=== PATIENT | female | born 1985 | race Caucasian/White ===

== ENCOUNTER 2020-12-29 10:11 | Outpatient (CLI) | payer OTHER ==
[2020-12-29 10:29] VITALS: BP 117/68
--- NOTE | 2020-12-29 11:28 | PROVIDER PROGRESS NOTE ---
- HPI Chief Complaint: Fall Current : Current EDU 01/29/21 Gestation 35 Weeks and 4 Days 4 Para 2 Vital Signs Temperature 98.4 F 12/29/20 10:21 Heart Rate 100 12/29/20 10:21 Respiratory Rate 16 12/29/20 10:21 Blood Pressure 117/68 12/29/20 10:21 Temperature 98.4 F 12/29/20 10:27 Heart Rate 100 12/29/20 10:27 Respiratory Rate 16 12/29/20 10:27 Blood Pressure 117/68 12/29/20 10:27 O2 Saturation 100 12/29/20 10:27 - Exam General no acute distress Breathing nonlabored Abdomen: soft, nontender, gravid - Procedures OB Procedure Performed: NST Diagnosis/Indication for NST: Other (Fall) NST Procedure: NST Procedure Start Date 12/29/20 Start Time 10:23 Vibroacoustic Stimulation Used No Patient States Movement Yes Service Date of procedure: 12/29/20 Findings: base line 140 Positive accelerations. No decelerations, moderate variability No contractions, Reactive and reassuring. - Plan Plan: 35-year-old G4, P2 at 35 weeks 4 days presenting with fall. 1. Fall. Fall at approximately 9:15 AM. Positive movement. No vaginal bleeding. No abdominal trauma. External monitoring reactive and reassuring. No contractions noted. Plan for prolonged monitoring. \ Addendum: status post prolonged monitoring. Short remains reactive and reassuring. Stable for discharge with kick count precautions
== END 2020-12-29 11:30 | disposition home or self-care (01) ==
LOC: WFO 10:11 → FBP 10:13 → WFO 11:30
PROVIDERS: ATTEND Obstetrics & Gynecology
DX: Z34.83 Encounter for supervision of other normal pregnancy, third trimester (principal); Z3A.35 35 weeks gestation of pregnancy; Z91.81 History of falling
CPT/HCPCS: 59025; 99215

== ENCOUNTER 2021-01-01 07:00 | Outpatient (CLI) | payer OTHER | END 2021-01-01 23:59 | disposition home or self-care (01) | LOC: LAB 07:00 | PROVIDERS: ATTEND Obstetrics & Gynecology | DX: Z36.85 Encounter for antenatal screening for Streptococcus B (principal) | CPT/HCPCS: 87797 ==

== ENCOUNTER 2021-01-09 14:38 | Outpatient (CLI) | payer OTHER ==
--- NOTE | 2021-01-09 17:48 | Ultrasound Report ---
PROCEDURE: OB F/U or Repeat INDICATIONS: SUPERVISION OF ELDERLY MULTIGRAVIDA OUTSIDE/PRIOR DATING DATA: Last menstrual period (LMP): 04/24/2020. LMP-based estimated date of delivery (VANE): 01/29/2021. First dating scan (date and location): Outside, 06/18/2020. Estimated date of delivery (VANE) from first dating scan: 01/29/2021. The below data below was generated using the outside ultrasound VANE of 01/29/2021 TECHNIQUE: Real-time scanning was performed of the fetus, with image documentation and biometric measurements. COMPARISON: Correlation is made with scanned in outside ultrasound reports, the majority of which ar e knowledgeable. FINDINGS: General: A single live intrauterine gestation is present. Presentation: Vertex Placenta: Placental position is anterior, without previa. Amniotic fluid index: 12.6 cm, within normal limits for gestational age. heart rate: 167 beats per minute. Maternal cervical canal: Not well seen. biometrics: Biparietal diameter: 9.4 cm equals 38 weeks 3 days Head circumference: 34.6 cm equals 40 weeks 1 day Abdominal circumference: 34.7 cm equals 38 weeks 4 days Femur length: 7.2 cm equals 36 weeks 5 days Estimated gestational age from initial scan: 37 weeks 1 day Composite gestational age from present scan: 38 weeks 3 days Estimated weight and percentile: 3459 g, 85th percentile Measurement variability in biometric dating: +/- 10 days from 12-20 weeks gestation, +/- 2 weeks from 20-30 weeks gestation, +/- 3 weeks at 30 weeks gestation or more. Other: The right kidney demonstrates pelviectasis measuring 8 mm. The left renal pelvis i s within normal limits. IMPRESSION: Single live intrauterine . No significant discrepancy is found between the estimated gestational age based upon these images and the estimated gestational age based upon the given outside dating. The cervix is not well seen. Mild prominence of the right renal pelvis, 8 mm. Reviewed by: Chandana Griffin MD on 01/09/2021 4:46 PM [facility] Approved by: Chandana Griffin MD on 01/09/2021 4:46 PM [facility] Station ID: [id number]
[2021-01-11 18:16] LABS: HEPATITIS C ANTIBODY NON-REACTIVE (NON-REACTIVE)
== END 2021-01-09 14:39 | disposition home or self-care (01) ==
LOC: DI 14:38
PROVIDERS: ATTEND Obstetrics & Gynecology
DX: O09.523 Supervision of elderly multigravida, third trimester (principal); Z36.89 Encounter for other specified antenatal screening
CPT/HCPCS: 36415; 86787; 86803

== ENCOUNTER 2021-01-29 12:25 | Inpatient (IN) | payer OTHER ==
--- NOTE | 2021-01-29 13:18 | HISTORY & PHYSICAL EXAMINATION ---
Admit History - Visit Reason Visit Reason: Membranes rupture, Bloody show - : 4 Parity: 2 - Mother's Labs Mother's Blood Type: positive: O Mother's RH: positive: Negative GBS: positive: Group B Step Negative - Other Maternal History Other Maternal History: ID: Patient is a 36 yo at 40+0 wga who presents with likely SROM and bloody show. HPI: Patient was seen in clinic today and reports passage of a small amount of fluid per vagina. No contractions. She was nitrazine positive and had subjectively low fluid on BSUS. SVE was 2/50/-[address] Paul. She presents for evaluation in triage. Upon presentation, she has soaked one pad with with blood. She is in no pain. No contractions on monitor. 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 with second . Would like to catch her own baby, if possible. Rh negative but declined Rhogam as partner is known Rh negative. 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 PNC: LMP: 04/24/2020 VANE by LMP: 01/29/2021 Initial u/s: US performed 06/18/20, 8 weeks 0 days. FINAL VANE: 01/29/21 O Neg/Rubella immune Declined Rhogam d/t FOB Rh- (Patient is L&D RN/Peripartum support RN at [employer]) VZV: hx disease; no lab Genetic testing: CF negative; date uncertain FAS: anterior, 3VC EFW 91%ile, EIF, Had LL placenta, resolved in fu exam Glucola: 116 Influenza: 11/27/2020 COVID: Pfizer 09/21/2020 10/12/2020 Tdap: 12/24/2020 GBS: 01/01/2021 Negative HSV: denies self and partner Breast pump rx:01/01/21 MOD: anticipate PP contraception: Pap: self reports no hx abnormals; last 11/2019 in [place] Past Medical History: Anemia Past Surgical History: [place] teeth 2002 LL abdomen and R-upper back precancerous mole removal. 2013. 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 PE: VS 98.2 100 136/80 16 GEN: NAD HEAD: NCAT EYES: No scleral icterus or conjunctival injection CV: RR RESP: normal effort ABD: S&NT/ND, gravid PSYCH: appropriate affect NEURO: alert and oriented, normal gait and coordination EXT: WWP SVE 2/50/-2 per clinic exam EFM 145 mod stephan, no accels or decels VAS with appropriate response with 15x15 accels TOCO: Q3 min, mild A/P: Patient is a 36 yo at 40+0 wga who presents with likely SROM and bloody show. SROM: Unclear history of rupture also with blood show -Currently 40 weeks. Patient open to augmentation in setting of failure to progress in 2 hours. -Expectant management with possible pitocin augmentation -Bloody show, but tracing reassuring. Cont with close monitoring FWB: vertex, well grown, GBS negative, Cat I tracing -Continue with cEFM -No signs of distress in setting of bloody show. Consider change in mode of delivery with loss of reassuring tracing. PAIN: -Epidural as desired Nitrous oxide as desired Inpatient care Meds/Allgy - Allergies Allergies/Adverse Reactions: Allergies Allergy/AdvReac Type Severity Reaction Status Date / Time No Known Drug Allergies Allergy Verified 01/29/21 12:43 Physical - Abdominal Exam Vital Signs: Temp Pulse Resp BP Pulse Ox 98.2 F 100 16 136/80 H 01/29/21 12:36 01/29/21 12:36 01/29/21 12:36 01/29/21 12:36
[2021-01-29] MEDS ORDERED: miSOPROStoL 200 MCG TABLET PR ONE (13:37)
[2021-01-29] MEDS ORDERED: METHYLERGONOVINE 0.2 MG/ML VIAL IM PRN (13:37)
[2021-01-29] MEDS ORDERED: LABETALOL 20 MG/4 ML SYRINGE IVP PRN ×5 (13:37)
[2021-01-29] MEDS ORDERED: TRANEXAMIC ACID IN NACL 1,000 MG/100 ML BAG IV PRN (13:37)
[2021-01-29] MEDS ORDERED: SODIUM CHLORIDE FLUSH 0.9% 10 ML SYRINGE IVP PRN (13:37)
[2021-01-29] MEDS ORDERED: ACETAMINOPHEN 325 MG TABLET PO PRN (13:37)
[2021-01-29] MEDS ORDERED: NIFEdipine 10 MG CAPSULE PO PRN (13:37)
[2021-01-29] MEDS ORDERED: CARBOPROST TROMETHAMINE 250 MCG/ML AMP IM PRN (13:37)
[2021-01-29] MEDS ORDERED: hydrALAZINE INJ 20 MG/ML VIAL IVP PRN ×2 (13:37)
[2021-01-29] MEDS ORDERED: OXYTOCIN/SODIUM CHLORIDE 500 ML IV PRN (13:37)
[2021-01-29] MEDS ORDERED: miSOPROStoL 200 MCG TABLET BC ONE (13:37)
[2021-01-29] MEDS ORDERED: TERBUTALINE 1 MG/ML VIAL SUBQ PRN (13:37)
[2021-01-29] MEDS ORDERED: LIDOCAINE-MPF 1% 30 ML VIAL ID PRN (13:37)
[2021-01-29] MEDS ORDERED: OXYTOCIN 10 UNIT/ML VIAL IM PRN (13:37)
[2021-01-29] MEDS ORDERED: SODIUM CHLORIDE FLUSH 0.9% 10 ML SYRINGE IVP SCH (14:00)
[2021-01-29] MEDS: LACTATED RINGERS 1,000 ML IV SCH (14:25)
[2021-01-29 14:45] LABS: BASOPHILS # (AUTO) 0.1 10^3/uL (0.0-0.1); BASOPHILS % (AUTO) 0.5 %; EOSINOPHILS % (AUTO) 0.1 %; HCT - HEMATOCRIT 35.5 % (37.0-47.0); HGB - HEMOGLOBIN 11.7 g/dL (12.0-16.0); LYMPHOCYTES # (AUTO) 1.6 10^3/uL (1.5-3.5); MEAN CORPUSCULAR HEMOGLOBIN 30.2 pg (27.0-31.0); MEAN CORPUSCULAR VOLUME 91.7 fL (81.0-99.0); MEAN PLATELET VOLUME 10.8 fL (7.9-10.8); MONOCYTES # (AUTO) 0.7 10^3/uL (0.0-1.0); NEUTROPHILS # (AUTO) 12.3 10^3/uL (1.5-6.6); NEUTROPHILS % (AUTO) 82.4 %; PLT - PLATELET COUNT 194 10^3/uL (130-450); RED BLOOD COUNT 3.87 10^6/uL (4.20-5.40); RED CELL DISTRIBUTION WIDTH 12.9 % (12.0-15.0); WHITE BLOOD COUNT 14.9 x10^3/uL (4.8-10.8)
[2021-01-29 15:11] LABS: ALBUMIN 3.6 g/dL (3.2-5.5); ALBUMIN/GLOBULIN RATIO 1.1 (1.0-2.2); ALKALINE PHOSPHATASE 148 IU/L (42-121); ALT ALANINE AMINOTRANSFERASE < 10 IU/L (10-60); AST ASPARTATE AMINOTRANSFERASE 15 IU/L (10-42); BILIRUBIN,TOTAL 0.6 mg/dL (0.2-1.0); BUN - BLOOD UREA NITROGEN 7 mg/dL (6-20); CALCIUM 8.8 mg/dL (8.5-10.3); CARBON DIOXIDE - CO2 20 mmol/L (21-32); CHLORIDE 100 mmol/L (101-111); CREATININE 0.6 mg/dL (0.4-1.0); GFR - MDRD 114 (>89); GLUCOSE 80 mg/dL (70-100); POTASSIUM 3.7 mmol/L (3.5-5.0); SODIUM 132 mmol/L (135-145)
--- NOTE | 2021-01-29 16:25 | ANESTHESIA ---
Pre-Anesthesia VS, & Labs - Diagnosis term labor, IUP - Procedure epidural for Vital Signs: Temp Pulse Resp BP Pulse Ox 36.8 C 100 16 136/80 H 01/29/21 13:05 01/29/21 13:05 01/29/21 13:05 01/29/21 13:05 Height: 5 ft 7 in Weight (kg): 72.575 kg Body Mass Index: 25.0 BMI Classification: Overweight - NPO Last Fluid Intake: t/o day Last Food Intake: full lunch - Is Patient ?: Yes - Lab Results Current Lab Results: Laboratory Tests 01/29/21 14:47: Blood Type Recheck O NEGATIVE 01/29/21 14:36: Blood Type O NEGATIVE, Antibody Screen NEGATIVE, Crossmatch IS Only See Detail 01/29/21 14:30: Sodium 132 L, Potassium 3.7, Chloride 100 L, Carbon Dioxide 20 L , Anion Gap 12.0, BUN 7, Creatinine 0.6, Estimated GFR (MDRD) 114, Glucose 80, C alcium 8.8, Total Bilirubin 0.6, AST 15, ALT < 10 L, Alkaline Phosphatase 148 H, Total Protein 7.0, Albumin 3.6, Globulin 3.4, Albumin/Globulin Ratio 1.1 01/29/21 14:30: WBC 14.9 H, RBC 3.87 L, Hgb 11.7 L, Hct 35.5 L, MCV 91.7, MCH 30.2, MCHC 33.0, RDW 12.9, Plt Count 194, MPV 10.8, Neut # (Auto) 12.3 H, Lymph # (Auto) 1.6, [place] # (Auto) 0.7, Eos # (Auto) 0.0, Baso # (Auto) 0.1, Absolute Nucleated RBC 0.00, Nucleated RBC % 0.0 Lab results reviewed: Yes Fish Bones: 01/29/21 14:30 01/29/21 14:30 Home Medications and Allergies Active Medications Acetaminophen (Acetaminophen 325 Mg Tablet) 1,000 mg PO Q8HR PRN PRN Reason: Mild Pain Or Fever>38c(100.4f) Carboprost Tromethamine (Carboprost Tromethamine 250 Mcg/Ml Amp) 250 mcg IM ONCE PRN PRN Reason: Hemorrhage Stop: 01/29/21 18:00 Hydralazine HCl (Hydralazine Inj 20 Mg/Ml Vial) 5 - 20 mg IVP Q20M PRN; Protocol PRN Reason: SBP> or= 160 OR DBP> or= 110 Hydralazine HCl (Hydralazine Inj 20 Mg/Ml Vial) 10 mg IVP .ONCE PRN; Protocol PRN Reason: Step 9 of Labetalol protocol Stop: 02/03/21 13:39 Oxytocin/Sodium Chloride (Pitocin/Sodium Chloride) 500 mls @ 999 mls/hr IV PRN PRN; Protocol PRN Reason: POST- HEMORR PREVENTION Tranexamic Acid (Tranexamic 1,000 Mg/100ml-Nacl) 1,000 mg in 100 mls @ 600 mls/hr IV Q30M PRN PRN Reason: EBL >1200mL and within 3hr Lactated Ringer's (Lr) 1,000 mls @ 125 mls/hr IV .Q8H TE Last Admin: 01/29/21 14:25 Dose: 125 mls/hr Documented by: Labetalol HCl (Labetalol 20 Mg/4 Ml Syringe) 20 mg IVP ONCE PRN; Protocol PRN Reason: SBP> or= 160 OR DBP> or= 110 Stop: 01/29/21 18:00 Labetalol HCl (Labetalol 20 Mg/4 Ml Syringe) 20 - 80 mg IVP Q10M PRN; Protocol PRN Reason: SBP> or= 160 OR DBP> or= 110 Labetalol HCl (Labetalol 20 Mg/4 Ml Syringe) 20 - 40 mg IVP Q10M PRN; Protocol PRN Reason: SBP> or= 160 OR DBP> or= 110 Labetalol HCl (Labetalol 20 Mg/4 Ml Syringe) 20 mg IVP .ONCE PRN; Protocol PRN Reason: Step 9 of nifedipine protocol Stop: 02/03/21 13:39 Labetalol HCl (Labetalol 20 Mg/4 Ml Syringe) 40 mg IVP .ONCE PRN; Protocol PRN Reason: Step 9 of hydrALAZine protocol Stop: 02/03/21 13:39 Lidocaine HCl (Lidocaine-Mpf 1% 30 Ml Vial) 30 ml ID ONCE PRN PRN Reason: PERINEAL REPAIR Stop: 01/30/21 13:38 Methylergonovine Maleate (Methylergonovine 0.2 Mg/Ml Vial) 0.2 mg IM ONCE PRN PRN Reason: Hemorrhage Stop: 01/29/21 18:00 Nifedipine (Nifedipine 10 Mg Capsule) 10 - 20 mg PO Q20M PRN; Protocol PRN Reason: SBP> or= 160 OR DBP> or= 110 Oxytocin (Oxytocin 10 Unit/Ml Vial) 10 unit IM ONCE PRN PRN Reason: Step One if no IV access. Stop: 01/29/21 18:00 Sodium Chloride (Sodium Chloride Flush 0.9% 10 Ml Syringe) 10 ml IVP PRN PRN PRN Reason: NEEDED PER PROVIDER ORDERS Sodium Chloride (Sodium Chloride Flush 0.9% 10 Ml Syringe) 10 ml IVP Q8H TE Allergies/Adverse Reactions: Allergies Allergy/AdvReac Type Severity Reaction Status Date / Time No Known Drug Allergies Allergy Verified 01/29/21 12:43 Anes History & Medical History - Anesthetic History Anesthesia Complications: reports: No previous complications Family history of Anesthesia Complications: Denies Family history of Malignant Hyperthermia: Denies - Medical History Smoking Status: Never smoker - Surgical History Other Past Surgical History: wisdom teeth extraction - Obstetrical History : 4 Parity: 2 Exam General: Alert, Oriented x3, Cooperative Dental: WNL Mouth Openin Fingerbreadth Neck Mobility: Normal Mallampati classification: II Thyromental Distance: 4-6 cm Respiratory: No respiratory distress Cardiovascular: Regular rate Neurological: Normal speech Mental/Cognitive Status: Alert/Oriented X3, Normal for patient Cognitive Status: Within normal limits Plan Anesthesia Type: Epidural Consent for Procedure(s) Verified and Reviewed: Yes Code Status: Attempt Resuscitation ASA classification: 2-Mild systemic disease Is this case an emergency?: No
[2021-01-29] MEDS ORDERED: OXYTOCIN/SODIUM CHLORIDE 500 ML IV SCH (18:02)
--- NOTE | 2021-01-29 19:24 | PROVIDER PROGRESS NOTE ---
Subjective - Prog Note Date Prog Note Date: 01/29/21 Prog Note Time: 17:23 - Subjective Subjective: Patient is mignon but does not feel increase in intensity. No large gushes of fluid. Has been checked 2x in the last 5 hours. No change in SVE from /-2. Cat I tracing Ok with starting pitocin. Objective - Vital Signs/Intake & Output Vital Signs: Vital Signs x48h Temp Pulse Resp BP 01/29/21 13:05 98.2 F 100 16 136/80 H 01/29/21 12:36 98.2 F 100 16 136/80 H Intake & Output: Intake & Output 01/26/21 01/27/21 01/28/21 01/29/21 23:59 23:59 23:59 23:59 Intake Total 747.917 Balance 747.917 - Lab Results Fish Bones: 01/29/21 14:30 01/29/21 14:30 Other Labs: Lab Results x24hrs 01/29/21 01/29/21 01/29/21 Range/Units 14:47 14:36 14:30 WBC (4.8-10.8) x10^3/uL RBC (4.20-5.40) 10^6/uL Hgb (12.0-16.0) g/dL Hct (37.0-47.0) % MCV (81.0-99.0) fL MCH (27.0-31.0) pg MCHC (32.0-36.0) g/dL RDW (12.0-15.0) % Plt Count (130-450) 10^3/uL MPV (7.9-10.8) fL Neut # (Auto) (1.5-6.6) 10^3/uL Lymph # (Auto) (1.5-3.5) 10^3/uL [place] # (Auto) (0.0-1.0) 10^3/uL Eos # (Auto) (0.0-0.7) 10^3/uL Baso # (Auto) (0.0-0.1) 10^3/uL Absolute Nucleated RBC x10^3/uL Nucleated RBC % /100WBC Sodium 132 L (135-145) mmol/L Potassium 3.7 (3.5-5.0) mmol/L Chloride 100 L (101-111) mmol/L Carbon Dioxide 20 L (21-32) mmol/L Anion Gap 12.0 (6-13) BUN 7 (6-20) mg/dL Creatinine 0.6 (0.4-1.0) mg/dL Estimated GFR (MDRD) 114 (>89) Glucose 80 (70-100) mg/dL Calcium 8.8 (8.5-10.3) mg/dL Total Bilirubin 0.6 (0.2-1.0) mg/dL AST 15 (10-42) IU/L ALT < 10 L (10-60) IU/L Alkaline Phosphatase 148 H (42-121) IU/L Total Protein 7.0 (6.7-8.2) g/dL Albumin 3.6 (3.2-5.5) g/dL Globulin 3.4 (2.1-4.2) g/dL Albumin/Globulin Ratio 1.1 (1.0-2.2) Blood Type O NEGATIVE Blood Type Recheck O NEGATIVE Antibody Screen NEGATIVE Crossmatch IS Only See Detail 01/29/21 Range/Units 14:30 WBC 14.9 H (4.8-10.8) x10^3/uL RBC 3.87 L (4.20-5.40) 10^6/uL Hgb 11.7 L (12.0-16.0) g/dL Hct 35.5 L (37.0-47.0) % MCV 91.7 (81.0-99.0) fL MCH 30.2 (27.0-31.0) pg MCHC 33.0 (32.0-36.0) g/dL RDW 12.9 (12.0-15.0) % Plt Count 194 (130-450) 10^3/uL MPV 10.8 (7.9-10.8) fL Neut # (Auto) 12.3 H (1.5-6.6) 10^3/uL Lymph # (Auto) 1.6 (1.5-3.5) 10^3/uL [place] # (Auto) 0.7 (0.0-1.0) 10^3/uL Eos # (Auto) 0.0 (0.0-0.7) 10^3/uL Baso # (Auto) 0.1 (0.0-0.1) 10^3/uL Absolute Nucleated RBC 0.00 x10^3/uL Nucleated RBC % 0.0 /100WBC Sodium (135-145) mmol/L Potassium (3.5-5.0) mmol/L Chloride (101-111) mmol/L Carbon Dioxide (21-32) mmol/L Anion Gap (6-13) BUN (6-20) mg/dL Creatinine (0.4-1.0) mg/dL Estimated GFR (MDRD) (>89) Glucose (70-100) mg/dL Calcium (8.5-10.3) mg/dL Total Bilirubin (0.2-1.0) mg/dL AST (10-42) IU/L ALT (10-60) IU/L Alkaline Phosphatase (42-121) IU/L Total Protein (6.7-8.2) g/dL Albumin (3.2-5.5) g/dL Globulin (2.1-4.2) g/dL Albumin/Globulin Ratio (1.0-2.2) Blood Type Blood Type Recheck Antibody Screen Crossmatch IS Only
--- NOTE | 2021-01-29 20:20 | PROVIDER PROGRESS NOTE ---
Subjective - Prog Note Date Prog Note Date: 01/29/21 Prog Note Time: 20:19 - Subjective Subjective: Pitocin at 4 mU/min Ctx reg Q3-4; mild intensity Cat I tracing Cont with pitocin augmentation Patient plans on bath when uncomfortable and then transition to epidural as needed Objective - Vital Signs/Intake & Output Vital Signs: Vital Signs x48h Temp Pulse Resp BP 01/29/21 13:05 98.2 F 100 16 136/80 H 01/29/21 12:36 98.2 F 100 16 136/80 H Intake & Output: Intake & Output 01/26/21 01/27/21 01/28/21 01/29/21 23:59 23:59 23:59 23:59 Intake Total 747.917 Balance 747.917 - Lab Results Fish Bones: 01/29/21 14:30 01/29/21 14:30 Other Labs: Lab Results x24hrs 01/29/21 01/29/21 01/29/21 Range/Units 14:47 14:36 14:30 WBC (4.8-10.8) x10^3/uL RBC (4.20-5.40) 10^6/uL Hgb (12.0-16.0) g/dL Hct (37.0-47.0) % MCV (81.0-99.0) fL MCH (27.0-31.0) pg MCHC (32.0-36.0) g/dL RDW (12.0-15.0) % Plt Count (130-450) 10^3/uL MPV (7.9-10.8) fL Neut # (Auto) (1.5-6.6) 10^3/uL Lymph # (Auto) (1.5-3.5) 10^3/uL [place] # (Auto) (0.0-1.0) 10^3/uL Eos # (Auto) (0.0-0.7) 10^3/uL Baso # (Auto) (0.0-0.1) 10^3/uL Absolute Nucleated RBC x10^3/uL Nucleated RBC % /100WBC Sodium 132 L (135-145) mmol/L Potassium 3.7 (3.5-5.0) mmol/L Chloride 100 L (101-111) mmol/L Carbon Dioxide 20 L (21-32) mmol/L Anion Gap 12.0 (6-13) BUN 7 (6-20) mg/dL Creatinine 0.6 (0.4-1.0) mg/dL Estimated GFR (MDRD) 114 (>89) Glucose 80 (70-100) mg/dL Calcium 8.8 (8.5-10.3) mg/dL Total Bilirubin 0.6 (0.2-1.0) mg/dL AST 15 (10-42) IU/L ALT < 10 L (10-60) IU/L Alkaline Phosphatase 148 H (42-121) IU/L Total Protein 7.0 (6.7-8.2) g/dL Albumin 3.6 (3.2-5.5) g/dL Globulin 3.4 (2.1-4.2) g/dL Albumin/Globulin Ratio 1.1 (1.0-2.2) Blood Type O NEGATIVE Blood Type Recheck O NEGATIVE Antibody Screen NEGATIVE Crossmatch IS Only See Detail 01/29/21 Range/Units 14:30 WBC 14.9 H (4.8-10.8) x10^3/uL RBC 3.87 L (4.20-5.40) 10^6/uL Hgb 11.7 L (12.0-16.0) g/dL Hct 35.5 L (37.0-47.0) % MCV 91.7 (81.0-99.0) fL MCH 30.2 (27.0-31.0) pg MCHC 33.0 (32.0-36.0) g/dL RDW 12.9 (12.0-15.0) % Plt Count 194 (130-450) 10^3/uL MPV 10.8 (7.9-10.8) fL Neut # (Auto) 12.3 H (1.5-6.6) 10^3/uL Lymph # (Auto) 1.6 (1.5-3.5) 10^3/uL [place] # (Auto) 0.7 (0.0-1.0) 10^3/uL Eos # (Auto) 0.0 (0.0-0.7) 10^3/uL Baso # (Auto) 0.1 (0.0-0.1) 10^3/uL Absolute Nucleated RBC 0.00 x10^3/uL Nucleated RBC % 0.0 /100WBC Sodium (135-145) mmol/L Potassium (3.5-5.0) mmol/L Chloride (101-111) mmol/L Carbon Dioxide (21-32) mmol/L Anion Gap (6-13) BUN (6-20) mg/dL Creatinine (0.4-1.0) mg/dL Estimated GFR (MDRD) (>89) Glucose (70-100) mg/dL Calcium (8.5-10.3) mg/dL Total Bilirubin (0.2-1.0) mg/dL AST (10-42) IU/L ALT (10-60) IU/L Alkaline Phosphatase (42-121) IU/L Total Protein (6.7-8.2) g/dL Albumin (3.2-5.5) g/dL Globulin (2.1-4.2) g/dL Albumin/Globulin Ratio (1.0-2.2) Blood Type Blood Type Recheck Antibody Screen Crossmatch IS Only
[2021-01-30] MEDS ORDERED: ROPIVACAINE 0.2% 200 MG/100 ML BAG EP ONE (00:36)
[2021-01-30] MEDS: LACTATED RINGERS 1,000 ML IV SCH (00:42)
[2021-01-30] MEDS ORDERED: ePHEDrine 50 MG/ML VIAL IVP PRN (01:15)
[2021-01-30] MEDS ORDERED: METOCLOPRAMIDE 10 MG/2 ML VIAL IVP PRN (01:15)
[2021-01-30] MEDS ORDERED: diphenhydrAMINE INJ 50 MG/ML VIAL IVP PRN (01:15)
[2021-01-30] MEDS ORDERED: NALOXONE 0.4 MG/ML VIAL IVP PRN (01:15)
[2021-01-30] MEDS ORDERED: ROPIVACAINE 0.2% 200 MG/100 ML BAG EP PRN (01:15)
[2021-01-30] MEDS ORDERED: ONDANSETRON 4 MG/2 ML VIAL IVP PRN (01:15)
[2021-01-30] MEDS ORDERED: NALBUPHINE 10 MG/ML AMP IVP PRN (01:15)
--- NOTE | 2021-01-30 02:14 | PROVIDER PROGRESS NOTE ---
Subjective - Prog Note Date Prog Note Date: 01/30/21 Prog Note Time: 02:11 - Subjective Subjective: Contractions became more intense and patient requested epidural . 5 cm with BBOW prior to epidural placement. Pitocin had been at 8 mU/min. She was off for 30 minutes while awaiting epidural. Restarted at 4 mU/min. Contractions were frequent and pitocin was reduced to 2 mu/min Forebag ruptured and patient is 6/100/-2 station EFM 140 mod stephan no accels no decels TOCO: Q1-2 min Will stop pitocin to allow for natural labor course. Objective - Vital Signs/Intake & Output Intake & Output: Intake & Output 01/27/21 01/28/21 01/29/21 01/30/21 23:59 23:59 23:59 23:59 Intake Total 753.384 752.083 Balance 753.384 752.083 - Lab Results Fish Bones: 01/29/21 14:30 01/29/21 14:30 Other Labs: Lab Results x24hrs 01/29/21 01/29/21 01/29/21 Range/Units 14:47 14:36 14:30 WBC (4.8-10.8) x10^3/uL RBC (4.20-5.40) 10^6/uL Hgb (12.0-16.0) g/dL Hct (37.0-47.0) % MCV (81.0-99.0) fL MCH (27.0-31.0) pg MCHC (32.0-36.0) g/dL RDW (12.0-15.0) % Plt Count (130-450) 10^3/uL MPV (7.9-10.8) fL Neut # (Auto) (1.5-6.6) 10^3/uL Lymph # (Auto) (1.5-3.5) 10^3/uL [place] # (Auto) (0.0-1.0) 10^3/uL Eos # (Auto) (0.0-0.7) 10^3/uL Baso # (Auto) (0.0-0.1) 10^3/uL Absolute Nucleated RBC x10^3/uL Nucleated RBC % /100WBC Sodium 132 L (135-145) mmol/L Potassium 3.7 (3.5-5.0) mmol/L Chloride 100 L (101-111) mmol/L Carbon Dioxide 20 L (21-32) mmol/L Anion Gap 12.0 (6-13) BUN 7 (6-20) mg/dL Creatinine 0.6 (0.4-1.0) mg/dL Estimated GFR (MDRD) 114 (>89) Glucose 80 (70-100) mg/dL Calcium 8.8 (8.5-10.3) mg/dL Total Bilirubin 0.6 (0.2-1.0) mg/dL AST 15 (10-42) IU/L ALT < 10 L (10-60) IU/L Alkaline Phosphatase 148 H (42-121) IU/L Total Protein 7.0 (6.7-8.2) g/dL Albumin 3.6 (3.2-5.5) g/dL Globulin 3.4 (2.1-4.2) g/dL Albumin/Globulin Ratio 1.1 (1.0-2.2) Blood Type O NEGATIVE Blood Type Recheck O NEGATIVE Antibody Screen NEGATIVE Crossmatch IS Only See Detail 01/29/21 Range/Units 14:30 WBC 14.9 H (4.8-10.8) x10^3/uL RBC 3.87 L (4.20-5.40) 10^6/uL Hgb 11.7 L (12.0-16.0) g/dL Hct 35.5 L (37.0-47.0) % MCV 91.7 (81.0-99.0) fL MCH 30.2 (27.0-31.0) pg MCHC 33.0 (32.0-36.0) g/dL RDW 12.9 (12.0-15.0) % Plt Count 194 (130-450) 10^3/uL MPV 10.8 (7.9-10.8) fL Neut # (Auto) 12.3 H (1.5-6.6) 10^3/uL Lymph # (Auto) 1.6 (1.5-3.5) 10^3/uL [place] # (Auto) 0.7 (0.0-1.0) 10^3/uL Eos # (Auto) 0.0 (0.0-0.7) 10^3/uL Baso # (Auto) 0.1 (0.0-0.1) 10^3/uL Absolute Nucleated RBC 0.00 x10^3/uL Nucleated RBC % 0.0 /100WBC Sodium (135-145) mmol/L Potassium (3.5-5.0) mmol/L Chloride (101-111) mmol/L Carbon Dioxide (21-32) mmol/L Anion Gap (6-13) BUN (6-20) mg/dL Creatinine (0.4-1.0) mg/dL Estimated GFR (MDRD) (>89) Glucose (70-100) mg/dL Calcium (8.5-10.3) mg/dL Total Bilirubin (0.2-1.0) mg/dL AST (10-42) IU/L ALT (10-60) IU/L Alkaline Phosphatase (42-121) IU/L Total Protein (6.7-8.2) g/dL Albumin (3.2-5.5) g/dL Globulin (2.1-4.2) g/dL Albumin/Globulin Ratio (1.0-2.2) Blood Type Blood Type Recheck Antibody Screen Crossmatch IS Only
--- NOTE | 2021-01-30 02:19 | PROVIDER PROGRESS NOTE ---
Subjective - Prog Note Date Prog Note Date: 01/30/21 Prog Note Time: 02:18 - Subjective Subjective: Comfortable with epidural SE 9/C/-2 Pitocin off given Q1-2 min contractions Delivery table in room Objective - Vital Signs/Intake & Output Intake & Output: Intake & Output 01/27/21 01/28/21 01/29/21 01/30/21 23:59 23:59 23:59 23:59 Intake Total 753.384 752.083 Balance 753.384 752.083 - Lab Results Fish Bones: 01/29/21 14:30 01/29/21 14:30 Other Labs: Lab Results x24hrs 01/29/21 01/29/21 01/29/21 Range/Units 14:47 14:36 14:30 WBC (4.8-10.8) x10^3/uL RBC (4.20-5.40) 10^6/uL Hgb (12.0-16.0) g/dL Hct (37.0-47.0) % MCV (81.0-99.0) fL MCH (27.0-31.0) pg MCHC (32.0-36.0) g/dL RDW (12.0-15.0) % Plt Count (130-450) 10^3/uL MPV (7.9-10.8) fL Neut # (Auto) (1.5-6.6) 10^3/uL Lymph # (Auto) (1.5-3.5) 10^3/uL [place] # (Auto) (0.0-1.0) 10^3/uL Eos # (Auto) (0.0-0.7) 10^3/uL Baso # (Auto) (0.0-0.1) 10^3/uL Absolute Nucleated RBC x10^3/uL Nucleated RBC % /100WBC Sodium 132 L (135-145) mmol/L Potassium 3.7 (3.5-5.0) mmol/L Chloride 100 L (101-111) mmol/L Carbon Dioxide 20 L (21-32) mmol/L Anion Gap 12.0 (6-13) BUN 7 (6-20) mg/dL Creatinine 0.6 (0.4-1.0) mg/dL Estimated GFR (MDRD) 114 (>89) Glucose 80 (70-100) mg/dL Calcium 8.8 (8.5-10.3) mg/dL Total Bilirubin 0.6 (0.2-1.0) mg/dL AST 15 (10-42) IU/L ALT < 10 L (10-60) IU/L Alkaline Phosphatase 148 H (42-121) IU/L Total Protein 7.0 (6.7-8.2) g/dL Albumin 3.6 (3.2-5.5) g/dL Globulin 3.4 (2.1-4.2) g/dL Albumin/Globulin Ratio 1.1 (1.0-2.2) Blood Type O NEGATIVE Blood Type Recheck O NEGATIVE Antibody Screen NEGATIVE Crossmatch IS Only See Detail 01/29/21 Range/Units 14:30 WBC 14.9 H (4.8-10.8) x10^3/uL RBC 3.87 L (4.20-5.40) 10^6/uL Hgb 11.7 L (12.0-16.0) g/dL Hct 35.5 L (37.0-47.0) % MCV 91.7 (81.0-99.0) fL MCH 30.2 (27.0-31.0) pg MCHC 33.0 (32.0-36.0) g/dL RDW 12.9 (12.0-15.0) % Plt Count 194 (130-450) 10^3/uL MPV 10.8 (7.9-10.8) fL Neut # (Auto) 12.3 H (1.5-6.6) 10^3/uL Lymph # (Auto) 1.6 (1.5-3.5) 10^3/uL [place] # (Auto) 0.7 (0.0-1.0) 10^3/uL Eos # (Auto) 0.0 (0.0-0.7) 10^3/uL Baso # (Auto) 0.1 (0.0-0.1) 10^3/uL Absolute Nucleated RBC 0.00 x10^3/uL Nucleated RBC % 0.0 /100WBC Sodium (135-145) mmol/L Potassium (3.5-5.0) mmol/L Chloride (101-111) mmol/L Carbon Dioxide (21-32) mmol/L Anion Gap (6-13) BUN (6-20) mg/dL Creatinine (0.4-1.0) mg/dL Estimated GFR (MDRD) (>89) Glucose (70-100) mg/dL Calcium (8.5-10.3) mg/dL Total Bilirubin (0.2-1.0) mg/dL AST (10-42) IU/L ALT (10-60) IU/L Alkaline Phosphatase (42-121) IU/L Total Protein (6.7-8.2) g/dL Albumin (3.2-5.5) g/dL Globulin (2.1-4.2) g/dL Albumin/Globulin Ratio (1.0-2.2) Blood Type Blood Type Recheck Antibody Screen Crossmatch IS Only
[2021-01-30] MEDS ORDERED: ONDANSETRON ODT 4 MG TABLET TL PRN (06:32)
[2021-01-30] MEDS ORDERED: SIMETHICONE CHEW 80 MG TABLET PO PRN (06:32)
--- NOTE | 2021-01-30 06:37 | DELIVERY NOTE ---
Delivery Note - Labor Labor: positive: Spontaneous, Augmented by oxytocin - Presentation Presentation: positive: Vertex - Nuchal Cord Nuchal Cord: positive: None - Anesthetic Anesthetic Type: - Amniotic Fluid Description Amniotic Fluid Description: positive: Clear - Laceration Laceration: positive: 2nd degree - Suture Suture Type: positive: Vicryl Suture Size: positive: 2-0, 3-0 - Delivery Outcome Delivery Outcome: positive: Livebirth - [place] : positive: Placed in direct skin contact with mother, Suctioned, Bulb syringe, Stimulated, Warmed, Jackson used [place] sex: positive: Male : 8/9 : weight 4296g - Cord Cord: positive: 3 vessels - Placenta Placenta: positive: Intact, Expressed - Estimated Blood Loss Estimated Blood Loss (in cc): 300 - Post Delivery Events Post Delivery Events: positive: No post delivery events - Delivery Comments (Free Text/Narrative) Delivery Comments (Free Text/Narrative): STAGE I: Patient is a 36 yo at 40+0 wga who presented with likely SROM and bloody show on 01/29/21. Patient was seen in clinic on day of presentation and reported passage of a small amount of fluid per vagina. No contractions. She was nitrazine positive and had subjectively low fluid on BSUS. SVE was 2/50/-[address] Paul. She presents for evaluation in triage. Upon presentation, she has soaked one pad with with blood. She is in no pain. No contractions on monitor. She then continued to pass more blood per vagina. Unclear whether patient was ruptured, but given late gestational age and moderate vaginal bleeding, the decision was made to proceed with labor support to delivery. She progressed to 4 cm without intervention and then failed to progress with further dilation. Pitocin was started for augmentation. She reached a max dose of 8 mU/min. Epidural was placed. She had taken more than 30 minute break from pitocin during placement of the epidural and pitocin was re-started at 4 mU/min. She continued to experienced frequent contractions and pitocin was brought to 2 mU/min and was eventually turned off completely. GBS negative, no antibiotics were indicated. Patient progressed to complete at 4:22 am on 01/30/21. Cat I tracing though out Stage I labor. STAGE II: Patient pused well to deliver a viable male at 5:44. Pitocin augmentation was reinstated secondary to maternal fatigue. position was OP/asynclitic and manual rotation was performed to optimize position for delivery. Infant delivered without difficulty to maternal chest. No nuchal cord. Cord pulsations ceased and cord was clamped x2 and cut by patient/mother. Apgars were 8/9 and weight was 4296 g. STAGE III: Placenta delivered at 5:50 am with manual expression. It was examined and found to be intact. Perineum was inspected and was found to be a second degree laceration with superficial involvement of the anal sphincter. Rectal exam was performed and sphincter was found to be intact. Of note, nancyt has a hsitory of a third degree laceration in prior . The sphincter capsule was reinforced with a series of figure of 8 sutures using 2-0 Vicryl. The pe rineal repair was performed using a crown stitch in the usual sterile fashion in layers, using 3-0 Vicryl. Rectal exam was again performed and no suture was palpated in the rectal vault. Good hemostasis was noted. Total EBL 300 cc.
[2021-01-30] MEDS: IBUPROFEN 600 MG TABLET PO PRN ×2 (07:55→20:01)
[2021-01-30] MEDS: DOCUSATE SODIUM 100 MG CAPSULE PO PRN ×2 (07:55→20:01)
--- NOTE | 2021-01-30 08:34 | Discharge Plan ---
Discharge Plan Problem Reviewed?: Yes Activity Restrictions: Additional Comments (see below) No Smoking: If you smoke, Please STOP! Call for help. <Hazel Forde - Last Filed: 01/30/21 08:41> Problem Reviewed?: Yes <ShardajannymarlyAnu - Last Filed: 02/01/21 09:57> Disposition: 01 Home, Self Care Condition: Good Prescriptions: Acetaminophen [Acetaminophen Extra Strength] 1,000 mg PO Q8H PRN #60 tablet PRN Reason: Pain Docusate Sodium 100Mg Capsule [Colace 100Mg Capsule] 100 - 200 mg PO BID PRN #60 cap PRN Reason: Constipation Ibuprofen [Motrin] 600 mg PO Q6H PRN #60 tab PRN Reason: Pain Additional Instructions or Follow Up instructions: Nothing in the vagina for 6 weeks: No intercourse, tampons, douching Call for: -Fever greater than 100.5 -Pain that does not improve with pain medication -Heavy bleeding in which you are soaking a pad an hour for 2 hours in a row -Pain in the legs (especially one sided), swelling in one leg and not the other, or difficulty/pain with breathing. No tub baths or hot tubs for 4 weeks MEDICATIONS: Ibuprofen 600 mg by mouth every 6 hours as needed for pain Acetaminophen 500-1000 mg by mouth every 8 hours as needed for pain Docusate 100-200 mg by mouth twice a day as needed for constipation Follow-up with: Stanislav Fuller MD [Provider Admit Priv/Credential] - 1 Week
--- NOTE | 2021-01-30 08:56 | DISCHARGE SUMMARY ---
"<Anu Sorensen - Last Filed: 02/01/21 09:53> Discharge Summary Discharge Date: 02/01/21 Condition at Discharge: Good Discharge Disposition: 01 Home, Self Care - HOSPITAL COURSE Hospital Course: This is a 36-year-old day 2 status post spontaneous vaginal delivery. The patient presented to clinic with leakage of fluid with suspected rupture of membranes. She was sent to triage at which time she was found to be in early labor with vaginal bleeding. She was admitted for delivery. Her labor was augmented with Pitocin. She had an uncomplicated spontaneous vaginal delivery. She met milestones and was stable for discharge on day 2. - ALLERGIES Allergies/Adverse Reactions: Allergies Allergy/AdvReac Type Severity Reaction Status Date / Time No Known Drug Allergies Allergy Verified 01/29/21 12:43 - MEDICATIONS Home Medications: Ambulatory Orders Medication Instructions Recorded Confirmed Acetaminophen [Acetaminophen Extra 1,000 mg PO Q8H PRN #60 tablet 01/30/21 Strength] Docusate Sodium 100Mg Capsule 100 - 200 mg PO BID PRN #60 cap 01/30/21 [Colace 100Mg Capsule] Ibuprofen [Motrin] 600 mg PO Q6H PRN #60 tab 01/30/21 - PHYSICAL EXAM AT DISCHARGE General Appearance: positive: No acute distress Eyes Bilateral: positive: Normal inspection Respiratory: positive: No respiratory distress Abdomen: positive: Non-tender. negative: Guarding, Rebound - LABS Result Diagrams: 01/29/21 14:30 01/29/21 14:30 - FOLLOW UP Follow Up: With Dr. Fuller in 1 week. <Hazel Forde - Last Filed: 02/04/21 14:03> Discharge Summary Admit Date: 01/29/21 Discharge Date: 01/31/21 - DIAGNOSES Admission Diagnoses: IUP at 40+0 wga Rupture of membranes Vaginal bleeding in Rh negative maternal status Discharge Diagnoses with Status of Each Condition: Same and delivery of term gestation LGA infant - HPI History of Present Illness: Patient is a 36 yo at 40+0 wga who presented with likely SROM and bloody show. Patient was seen in clinic today and reports passage of a small amount of fluid per vagina. No contractions. She was nitrazine positive and had subjectively low fluid on BSUS. SVE was 2/50/-[address] Paul. She presented for evaluation in triage. Upon presentation, she has soaked one pad with with blood. She was in no pain. No contractions on monitor. She continued to fill another pad with vaginal bleeding. The decision was made to admit patient for labor support with presumed SROM. 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 with second . Rh negative but declined Rhogam as partner is known Rh negative. PNC: LMP: 04/24/2020 VANE by LMP: 01/29/2021 Initial u/s: US performed 06/18/20, 8 weeks 0 days. 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 2012. - CONSULTS | PROCEDURES Procedures: Spontaneous vaginal delivery - HOSPITAL COURSE Hospital Course: STAGE I: Patient is a 36 yo at 40+0 wga who presented with likely SROM and bloody show on 01/29/21. Patient was seen in clinic on day of presentation and reported passage of a small amount of fluid per vagina. No contractions. She was nitrazine positive and had subjectively low fluid on BSUS. SVE was 2/50/-[address] Paul. She presents for evaluation in triage. Upon presentation, she has soaked one pad with with blood. She is in no pain. No contractions on monitor. She then continued to pass more blood per vagina. Unclear whether patient was ruptured, but given late gestational age and moderate vaginal bleeding, the decision was made to proceed with labor support to delivery. She progressed to 4 cm without intervention and then failed to progress with further dilation. Pitocin was started for augmentation. She reached a max dose of 8 mU/min. Epidural was placed. She had taken more than 30 minute break from pitocin during placement of the epidural and pitocin was re-started at 4 mU/min. She continued to experienced frequent contractions and pitocin was brought to 2 mU/min and was eventually turned off completely. GBS negative, no antibiotics were indicated. Patient progressed to complete at 4:22 am on 01/30/21. Cat I tracing though out Stage I labor. STAGE II: Patient pushed well to deliver a viable male at 5:44. Pitocin augmentation was reinstated secondary to maternal fatigue. position was OP/asynclitic and manual rotation was performed to optimize position for delivery. delivered without difficulty to maternal chest. No nuchal cord. Cord pulsations ceased and cord was clamped x2 and cut by patient/mother. Apgars were 8/9 and weight was 4296 g. STAGE III: Placenta delivered at 5:50 am with manual expression. It was examined and found to be intact. Perineum was inspected and was found to be a second degree laceration with superficial involvement of the anal sphincter. Rectal exam was performed and sphincter was found to be intact. Of note, pateint has a hsitory of a third degree laceration in prior . The sphincter capsule was reinforced with a series of figure of 8 sutures using 2-0 Vicryl. The perineal repair was performed using a crown stitch in the usual sterile fashion in layers, using 3-0 Vicryl. Rectal exam was again performed and no suture was palpated in the rectal vault. Good hemostasis was noted. Total EBL 300 cc. : course was uncomplicated. Baby stayed an additional day for observation for prolonged rupture of membranes. Patient is Rh negative. FOB known to be Rh negative. Rubella immune LABOR PROVIDER: Dr. Forde DELIVERING PROVIDER: Dr. Forde DISCHARGING PROVIDER: Dr. Paul WEIGHT 4296g APGARS 8/9 - LABS Result Diagrams: 01/29/21 14:30 01/29/21 14:30 - TIME SPENT Time Spent in Discharge (Minutes): 30"
[2021-01-30] MEDS: ACETAMINOPHEN 500 MG TABLET PO PRN ×2 (14:47→22:42)
[2021-01-31] MEDS: IBUPROFEN 600 MG TABLET PO PRN ×4 (04:18→22:35)
[2021-01-31] MEDS: ACETAMINOPHEN 500 MG TABLET PO PRN ×2 (08:20→16:15)
[2021-01-31] MEDS: DOCUSATE SODIUM 100 MG CAPSULE PO PRN ×2 (08:21→20:52)
[2021-01-31] MEDS ORDERED: HYDROCORTISONE 25 MG SUPPOSITORY PR PRN (12:16)
--- NOTE | 2021-01-31 12:26 | PROVIDER PROGRESS NOTE ---
Subjective - Prog Note Date Prog Note Date: 01/31/21 Prog Note Time: 12:24 - Subjective Subjective: Patient reports some rectal discomfort. Her bleeding is minimal. She is breast-feeding without difficulty. Her pain is controlled with pain medications. Current Medications - Current Medications Current Medications: Active Medications Generic Name Dose Route Start Last Admin Trade Name Freq PRN Reason Stop Dose Admin Acetaminophen 1,000 mg 01/30/21 06:32 01/31/21 08:20 Acetaminophen 500 Mg Tablet PO 1,000 mg Q8H PRN Administration Abdominal Pain Diphenhydramine HCl 12.5 - 25 mg 01/30/21 01:15 Diphenhydramine Inj 50 Mg/Ml Vial IVP Q6HR PRN ITCHING Docusate Sodium 100 mg 01/30/21 06:32 01/31/21 08:21 Docusate Sodium 100 Mg Capsule PO 100 mg BID PRN Administration constipation Ephedrine Sulfate 5 mg 01/30/21 01:15 Ephedrine 50 Mg/Ml Vial IVP Q5M PRN For SBP<100;give until SBP>100 Hydralazine HCl 5 - 20 mg 01/29/21 13:37 Hydralazine Inj 20 Mg/Ml Vial IVP Q20M PRN SBP> or= 160 OR DBP> or= 110 Protocol Hydralazine HCl 10 mg 01/29/21 13:37 Hydralazine Inj 20 Mg/Ml Vial IVP 02/03/21 13:39 .ONCE PRN Step 9 of Labetalol protocol Protocol Hydrocortisone 25 mg 01/31/21 12:16 Hydrocortisone 25 Mg Suppository OH BID PRN Hemorrhoids Oxytocin/Sodium Chloride 500 mls @ 999 mls/hr 01/29/21 13:37 Pitocin/Sodium Chloride IV PRN PRN POST- HEMORR PREVENTION Protocol 999 MILLIUNIT/MIN Tranexamic Acid 1,000 mg in 100 mls @ 600 mls/hr 01/29/21 13:37 Tranexamic 1,000 Mg/100ml-Nacl IV Q30M PRN EBL >1200mL and within 3hr Lactated Ringer's 1,000 mls @ 125 mls/hr 01/29/21 14:00 01/30/21 20:47 Lr IV Infused .Q8H TE Infusion Oxytocin/Sodium Chloride 500 mls @ 1 mls/hr 01/29/21 18:02 01/29/21 23:30 Pitocin/Sodium Chloride IV 8 milliunit/min TITR TE 8 mls/hr Titration Protocol 1 MILLIUNIT/MIN Ropivacaine 200 mg in 100 mls @ 0 mls/hr 01/30/21 01:15 Naropin 0.2% EP PRN PRN PAIN Protocol Per Protocol Ibuprofen 600 mg 01/30/21 06:32 01/31/21 10:25 Ibuprofen 600 Mg Tablet PO 600 mg Q6H PRN Administration Abdominal Pain Labetalol HCl 20 - 80 mg 01/29/21 13:37 Labetalol 20 Mg/4 Ml Syringe IVP Q10M PRN SBP> or= 160 OR DBP> or= 110 Protocol Labetalol HCl 20 - 40 mg 01/29/21 13:37 Labetalol 20 Mg/4 Ml Syringe IVP Q10M PRN SBP> or= 160 OR DBP> or= 110 Protocol Labetalol HCl 20 mg 01/29/21 13:37 Labetalol 20 Mg/4 Ml Syringe IVP 02/03/21 13:39 .ONCE PRN Step 9 of nifedipine protocol Protocol Labetalol HCl 40 mg 01/29/21 13:37 Labetalol 20 Mg/4 Ml Syringe IVP 02/03/21 13:39 .ONCE PRN Step 9 of hydrALAZine protocol Protocol Metoclopramide HCl 10 mg 01/30/21 01:15 Metoclopramide 10 Mg/2 Ml Vial IVP Q6HR PRN Nausea / Vomiting Nalbuphine HCl 2.5 - 5 mg 01/30/21 01:15 Nalbuphine 10 Mg/Ml Amp IVP Q4H PRN ITCHING Naloxone HCl 0.1 mg 01/30/21 01:15 Naloxone 0.4 Mg/Ml Vial IVP Q2M PRN RR<8 Nifedipine 10 - 20 mg 01/29/21 13:37 Nifedipine 10 Mg Capsule PO Q20M PRN SBP> or= 160 OR DBP> or= 110 Protocol Ondansetron HCl 4 mg 01/30/21 01:15 Ondansetron 4 Mg/2 Ml Vial IVP Q6HR PRN Nausea / Vomiting Ondansetron HCl 4 mg 01/30/21 06:32 Ondansetron Odt 4 Mg Tablet TL Q4H PRN Nausea / Vomiting Simethicone 80 mg 01/30/21 06:32 Simethicone Chew 80 Mg Tablet PO TID PRN Gas Sodium Chloride 10 ml 01/29/21 13:37 Sodium Chloride Flush 0.9% 10 Ml Syringe IVP PRN PRN NEEDED PER PROVIDER ORDERS Sodium Chloride 10 ml 01/29/21 14:00 01/30/21 22:46 Sodium Chloride Flush 0.9% 10 Ml Syringe IVP 10 ml Q8H TE Administration Objective - Vital Signs/Intake & Output Reviewed Vital Signs: Yes Vital Signs: Vital Signs x48h Temp Pulse Resp BP Pulse Ox 01/31/21 08:00 98.1 F 68 16 111/71 99 Intake & Output: Intake & Output 01/28/21 01/29/21 01/30/21 01/31/21 23:59 23:59 23:59 23:59 Intake Total 859.589 9265.083 500 Output Total 1650 Balance 753.384 602.083 500 - Objective General Appearance: positive: No acute distress Eyes Bilateral: positive: Normal inspection Respiratory: positive: No respiratory distress Abdomen: positive: Non-tender, Other (Fundus firm, below umbilicus) - Lab Results Fish Bones: 01/29/21 14:30 01/29/21 14:30 Assessment/Plan - Problem List (1) Vaginal delivery Impression: 36-year-old day 1 status post spontaneous vaginal delivery. # day 1patient meeting milestones. Vital signs stable, anticipate discharge on day 2 as baby will be monitored for an additional day due to prolonged rupture of membranes.
[2021-01-31] MEDS ORDERED: HYDROCORTISONE 1% CREAM 28 GM TUBE TOP SCH (14:00)
[2021-02-01] MEDS: ACETAMINOPHEN 500 MG TABLET PO PRN ×2 (00:30→07:50)
[2021-02-01] MEDS: IBUPROFEN 600 MG TABLET PO PRN ×2 (04:14→11:28)
[2021-02-01] MEDS: DOCUSATE SODIUM 100 MG CAPSULE PO PRN (07:51)
[2021-02-01 08:07] VITALS: BP 118/70
--- NOTE | 2021-02-01 10:07 | PROVIDER PROGRESS NOTE ---
Subjective - Prog Note Date Prog Note Date: 02/01/21 Prog Note Time: 10:00 - Subjective Subjective: Patient has no complaints. She has minimal bleeding. Her pain is controlled with pain medications. She desires to go home. Objective - Vital Signs/Intake & Output Vital Signs: Vital Signs x48h Temp Pulse Resp BP Pulse Ox 02/01/21 08:00 98.6 F 66 17 118/70 100 02/01/21 04:15 98.1 F 65 18 101/58 L 99 Intake & Output: Intake & Output 01/29/21 01/30/21 01/31/21 02/01/21 23:59 23:59 23:59 23:59 Intake Total 657.501 3710.083 1500 Output Total 1650 Balance 753.384 427.069 9748 - Objective General Appearance: positive: No acute distress Eyes Bilateral: positive: Normal inspection Abdomen: positive: Non-tender, Other (Fundus firm, below umbilicus). negative: Guarding, Rebound - Lab Results Fish Bones: 01/29/21 14:30 01/29/21 14:30 Assessment/Plan - Problem List (1) Vaginal delivery Impression: Impression: 36-year-old day 2 status post spontaneous vaginal delivery. # day 2patient meeting milestones. Vital signs stable, Plan for discharge. Follow-up for visit in 1 week.
--- NOTE | 2021-02-04 03:40 | Labor Flowsheet ---
Labor Flowsheet Datetime Report Generated by CPN: 02/04/2021 03:40 Datetime: 02/01/2021 07:55 VITAL SIGNS NBP Sys/Estefany/Mean (mmHg): 118 : 70 : 78 Pulse: 77 SpO2 (%): 100 Datetime: 01/30/2021 06:30 Respirations: 18 Temperature (C): 37.1 Temperature Route: Oral Datetime: 01/30/2021 05:50 Stage of : Recovery Datetime: 01/30/2021 05:48 LaborFlag: Labor Datetime: 01/30/2021 05:38 Monitor Interventions for FHR: Ultrasound Adjusted Datetime: 01/30/2021 05:12 Pattern: Normal: <= 5 Contractions in 10 Minutes Category: Category I Patient Care Comments: 100cc emesis Datetime: 01/30/2021 05:11 Nausea/Vomiting: Present Datetime: 01/30/2021 05:03 MEDICATIONS Pitocin (milliunits): Started @ 1 Datetime: 01/30/2021 04:45 UTERINE ACTIVITY Monitor Mode: External Monitor Interventions for UA: Crossnore Adjusted Frequency (min): 2-4 Quality: Strong Duration (sec): 90-120 Resting Tone (Palpate): Relaxed ASSESSMENT A Monitor Mode: Telemetry FHR Baseline Rate : 135 FHR Baseline Changes: No Baseline Change Variability: Moderate 6-25 bpm Accelerations: 15X15 Decelerations: None Datetime: 01/30/2021 04:43 PAIN Pain Scale: 4 Datetime: 01/30/2021 04:38 STAGE 2 Pushing: Coached on Pushing Pushing Position: Pushing with Contractions Datetime: 01/30/2021 04:22 Pain Location: Back Pain Assessment Comments: bolus will go off in 1 minute VAGINAL EXAM Dilatation (cm): 10.0 Effacement (%): 100 Station: 1 Exam by: Dr. Perez Datetime: 01/30/2021 04:12 Patient Position/Activity: Right Lateral Datetime: 01/30/2021 03:44 Pain Presence: None/Denies Amniotic Fluid Color: Clear Amniotic Fluid Amount: Small MATERNAL ASSESSMENT Level of Consciousness: Drowsy DTR's/Clonus: DTRs 2+ Headache: Denies Breath Sounds, Left: Clear and Equal Breath Sounds, Right: Clear and Equal RUQ Epigastric Pain: Denies Anesthesia Level Check: T10- Umbilicus Datetime: 01/30/2021 03:33 Pain Goal: 6 Datetime: 01/30/2021 02:17 Medication Comments: per Dr. McSorely Datetime: 01/30/2021 02:16 Vaginal Bleeding: None Cervix, Consistency: Soft Cervix, Position: Anterior Datetime: 01/30/2021 01:30 I/O Interventions: Morris Cath Inserted Datetime: 01/30/2021 01:00 Anesthesia Comments: positioned LL Datetime: 01/30/2021 00:58 Epidural Procedure: Completed Datetime: 01/30/2021 00:42 PROCEDURE TIME OUT Procedure Verify: Correct Patient Identity; Correct Side and Site are Marked; Accurate Procedure Co nsent Form; Agreement on Procedure to be Done; Correct Patient Position; Relevant Images and Results are Properly Labeled and Displayed; Addressed Need to Administer Antibiotics or Fluids for Irrigation ; Safety Precautions Based on Patient History or Medication Use ANESTHESIA Anesthesia Plans: Epidural Epidural Positioning: Sitting Datetime: 01/29/2021 23:50 Membrane Status: Bulging bag palpated Membranes Ruptured Date/Time: 01/29/2021 05:30 Membranes Rupture Method: Spontaneous Amniotic Fluid Odor: None Datetime: 01/29/2021 23:31 Comments: pt moving out of tub with help of Maryam RN Datetime: 01/29/2021 23:00 COMMUNICATION Communication: Report Given to @ (Annotations: Maryam RN to cover break) Datetime: 01/29/2021 22:46 Contraction Comments: there are not more than 15 ctx in 30 min period Datetime: 01/29/2021 21:19 Vaginal Exam Comments: two spot mucousy blood tinged discharge Datetime: 01/29/2021 20:11 Provider Reviewed Strip: Yes Communication Comments: Dr. Forde in to see pt. updated on pitocin rate Datetime: 01/29/2021 19:18 Pain Type: Cramping Pain Coping: Talking Through Contractions PATIENT CARE Oxygen Method: Room Air Comfort Measures: Family Support TEACHING Instructional Method: Verbal Plan of Care: Plan of Care Discussed Unit Routine: [place] to Room; Call [place]; Bed; Visiting Policy; Waiting Areas; Infant Security; Phon e/Cell Phone Use; Handwashing; Monitoring; IV Pumps; Safety/Fall Risk Prevention; Diet/Nutritio n Services; Bathroom Privileges; Medications Labor/Induction: Labor Stages Pain Management: Epidural Related: Activity and Rest
--- NOTE | 2021-02-08 19:40 | PROCEDURE REPORT ---
- HPI Diagnosis/Indication for NST: Other (Ruptured membranes) Current EDU 01/29/21 Gestation 40 Weeks and 0 Days 4 Para 2 Vital Signs Temperature 98.2 F 01/29/21 12:36 Heart Rate 100 01/29/21 12:36 Respiratory Rate 16 01/29/21 12:36 Blood Pressure 136/80 H 01/29/21 12:36 Temperature 98.6 F 02/01/21 08:00 Heart Rate 66 02/01/21 08:00 Respiratory Rate 17 02/01/21 08:00 Blood Pressure 118/70 02/01/21 08:00 O2 Saturation 100 02/01/21 08:00 - NST Procedure NST Procedure Start Date 01/29/21 Start Time 13:00 Stop Time 13:30 Vibroacoustic Stimulation Used Yes Patient States Movement Yes EFM 145 mod stephan, no accels or decels VAS with appropriate response with 15x15 accels TOCO: Q3 min, mild - Results and Plan Findings/Impression: A/P: Patient is a 36 yo at 40+0 wga who presents with likely SROM and bloody show. Admitted for labor augmentation Please see H&P Cat I tracing DOS: 01/29/21 NST read: 01/29/21
== END 2021-02-01 11:45 | disposition home or self-care (01) | DRG 807 ==
LOC: WFO 12:25 → FBP 12:29 → WFO 13:36 → FBP 13:37
PROVIDERS: ADMIT Obstetrics & Gynecology; ATTEND Obstetrics & Gynecology
PROC: 0KQM0ZZ Repair Perineum Muscle, Open Approach (ICD-10-PCS; principal; 2021-01-30)
PROC: 10E0XZZ Delivery of Products of Conception, External Approach (ICD-10-PCS; 2021-01-30)
PROC: 10S0XZZ Reposition Products of Conception, External Approach (ICD-10-PCS; 2021-01-30)
DX: O70.1 Second degree perineal laceration during delivery (principal); Z37.0 Single live birth; O75.81 Maternal exhaustion complicating labor and delivery; O32.8XX0 Maternal care for other malpresentation of fetus, not applicable or unspecified; O42.02 Full-term premature rupture of membranes, onset of labor within 24 hours of rupture; Z3A.40 40 weeks gestation of pregnancy
CPT/HCPCS: 59025; 80053; 85025; 86850; 86900; 86901; 86920; 99215; A9270; J7120; 99213

== ENCOUNTER 2022-04-22 09:01 | Outpatient (CLI) | payer OTHER ==
--- NOTE | 2022-04-22 16:13 | XRAY Report ---
PROCEDURE: Sacrum/Coccyx INDICATIONS: COCCYX PAIN TECHNIQUE: 3 views of the sacrum and coccyx acquired. COMPARISON: None FINDINGS: Bones: No fractures or dislocations. No suspicious bony lesions. Soft tissues: Visualized bowel gas pattern is normal. No suspicious soft tissue densities. IMPRESSION: No visualized acute fracture or dislocation. However, occult injury cannot be excluded. Recommend ermias rt interval imaging follow-up in 7-10 days as clinically indicated for additional evaluation. Reviewed by: Silva Stephenson MD on 04/22/2022 4:12 PM PST Approved by: Silva Stephenson MD on 04/22/2022 4:12 PM PST Station ID: [id number]
== END 2022-04-22 09:02 | disposition home or self-care (01) ==
LOC: DI 09:01
PROVIDERS: ATTEND Nurse Practitioner
DX: M53.3 Sacrococcygeal disorders, not elsewhere classified (principal)